=== PATIENT | male | born 1995 | race Caucasian/White ===

== ENCOUNTER 2018-07-03 09:33 | Emergency (ER) | payer SELFPAY ==
[2018-07-03 14:22] VITALS: BP 148/91
== END 2018-07-03 12:35 | disposition home or self-care (01) ==
LOC: ED 09:33
DX: S93.402A Sprain of unspecified ligament of left ankle, initial encounter (principal); W22.8XXA Striking against or struck by other objects, initial encounter; Y93.02 Activity, running; Y92.89 Other specified places as the place of occurrence of the external cause; Y99.8 Other external cause status